=== PATIENT | female | born 1975 | race African-American/Black ===

== ENCOUNTER 2018-09-22 19:28 | Emergency (ER) | payer MEDICAID ==
[~2018-09-22] VITALS: Ht 162.6 cm; Wt 73.0 kg
[~2018-09-22 19:28] MED LIST: PHEN100C4
[2018-09-22] MEDS ORDERED: LEVETIRACETAM 500MG PREMIX 100 ML IV ONE (20:00)
[2018-09-22 20:49] LABS: BASOPHILS % 0.5 % (0.0-2.0); EOSINOPHILS % 2.3 % (0.0-5.0); HEMATOCRIT. 41.5 % (36.0-48.0); HEMOGLOBIN. 13.9 g/dL (12.0-16.0); LYMPHOCYTES % 25.2 % (20.0-50.0); MEAN CORPUSCULAR HEMOGLOBIN 31.3 pg (28.0-32.0); MEAN CORPUSCULAR VOLUME 93.8 fL (81.0-99.0); MEAN PLATELET VOLUME 7.5 fl (7.4-10.4); MONOCYTES % 7.3 % (2.0-8.0); NEUTROPHILS % 64.7 % (40.0-76.0); PLATELET 300 x1000/uL (130-400); RED BLOOD CELL COUNT 4.43 mill/uL (4.2-5.4)
[2018-09-22 20:56] LABS: CHLORIDE 106 mEq/L (98-107)
[2018-09-22 21:00] LABS: HCG SCREEN NEGATIVE
[2018-09-22] MEDS ORDERED: PHENYTOIN SODIUM EXTENDED 100MG CAPSULE PO ONE (22:45)
[2018-09-23 01:00] VITALS: BP 127/65
== END 2018-09-23 01:10 | disposition home or self-care (01) ==
LOC: ER 19:43
DX: G40.909 Epilepsy, unspecified, not intractable, without status epilepticus (principal)
CPT/HCPCS: 36415; 80053; 80185; 82962; 84703; 85025; 96365; 99283; J1953